=== PATIENT | female | born 1980 | race Caucasian/White ===

== ENCOUNTER 2017-04-14 20:00 | Emergency (ER) | payer MEDICAID ==
[~2017-04-14] VITALS: Ht 157.5 cm; Wt 84.5 kg
[~2017-04-14 20:00] MED LIST: CALC600T5 PO; FER325 PO; IRON1TAB75 PO; PREN-46 PO; PREN1TAB17 PO; PRO20 PO; [UNRECOGNIZED DRUG - CODE] PO
[2017-04-14 20:03] VITALS: Ht 157.5 cm; Wt 84.5 kg
[2017-04-14] MEDS ORDERED: KETOROLAC 60 MG INJ IM STA (22:53)
[2017-04-14] MEDS ORDERED: NAPR-688 PO (23:40)
--- NOTE | 2017-04-14 23:45 | ERD ---
ER Documentation Chief Complaint Date/Time DATE: 04/14/17 TIME: 23:42 Chief Complaint Chest pain noted, exacerbated by deep breathing x1 day HPI 36-year-old female presents with chest pain made worse by deep breathing for 1 day. The pain is across her entire chest and has tenderness to palpation in the left side of the chest. She has no shortness of breath, lightheadedness, nausea or vomiting. She works at home and cares for her children. No cardiac risk factors. ROS All systems reviewed and are negative except as per history of present illness. Medications Home Meds Active Scripts Naproxen* (Naproxen*) 500 Mg Tablet, 500 MG PO BID, #20 TAB Prov:ABILIO TILLEY DO 04/14/17 Reported Medications Calcium Carbonate (CALCIUM) 600 Mg Tablet, 600 MG PO DAILY 08/31/13 Ferrous Sulfate* (Ferrous Sulfate*) 325 Mg Tabec, 325 MG PO DAILY 08/31/13 Vit #108/Iron/Fa ( ONE TABLET) 1 Each Tablet, 1 EACH PO DAILY 08/31/13 Nifedipine* (Procardia*) 20 Mg Cap, 20 MG PO Q6 08/31/13 Iron &Iron Asp Gly/Fa/Mv,Min38 (IRON TABLET) 1 Each Tablet, 1 EACH PO DAILY 06/23/13 Calc/D3/Mag/Zn/[employer]ric [employer]er/[place] (CALCIUM 600 MG + VIT D TAB) 1 Each Tablet, 1 EACH PO DAILY 06/23/13 Vit-Iron Fumarate-FA ( Tablet) 1 Each Tablet, 1 EACH PO DAILY 06/23/13 Allergies Allergies: Coded Allergies: No Known Allergy (Unverified , 08/06/06) PMhx/Soc Medical and Surgical Hx: pt denies Medical Hx, pt denies Surgical Hx Hx Alcohol Use: No Hx Substance Use: No Hx Tobacco Use: No Smoking Status: Never smoker Physical Exam Vitals Vital Signs Date Time Temp Pulse Resp B/P Pulse Ox O2 Delivery O2 Flow Rate FiO2 04/14/17 20:03 99.6 74 18 169/104 98 Physical Exam Const: [] No distress ENT: Normal External Ears, Nose and Mouth. Neck: Full range of motion..~ No meningismus. Resp: Clear to auscultation bilaterally Cardio: Regular rate and rhythm, no murmurs Abd: Soft, non tender, non distended. Normal bowel sounds Skin: No petechiae or rashes Chest wall: Very tender to palpation over left costochondral junction. Ext: No cyanosis, or edema Results 24 hrs Current Medications Medications (Trade) Dose Ordered Sig/[place] Route PRN Reason Start Time Stop Time Status Last Admin Dose Admin Ketorolac Tromethamine (Toradol) 60 mg ONCE STAT IM 04/14/17 22:53 04/14/17 22:54 DC 04/14/17 23:02 Procedures/MDM Patient with no risk factors for acute coronary syndrome with normal EKG and very tender to palpation as well as pain elicited with arm movements. Likely costochondritis. I have very little suspicion for acute coronary syndrome. Patient was given Toradol injection IM 60 mg in the ER which did help with her pain significantly. I am discharging with naproxen for 10 days as well as return precautions and recommendation to get an outpatient echo through her primary care doctor. Providing primary care follow-up in the next 2 3 days. EKG interpretation: Normal sinus rhythm rate of 67, normal axis, no ST or T- wave changes concerning for acute ischemia. Normal intervals per normal EKG Departure Diagnosis: Primary Impression: Costochondritis, acute Condition: Stable Patient Instructions: Chest Wall Pain, Costochondritis Referrals: [facility] YOU HAVE RECEIVED A MEDICAL SCREENING EXAM AND THE RESULTS INDICATE THAT YOU DO NOT HAVE A CONDITION THAT REQUIRES URGENT TREATMENT IN THE EMERGENCY DEPARTMENT. FURTHER EVALUATION AND TREATMENT OF YOUR CONDITION CAN WAIT UNTIL YOU ARE SEEN IN YOUR DOCTORS OFFICE WITHIN THE NEXT 1-2 DAYS. IT IS YOUR RESPONSIBILITY TO MAKE AN APPOINTMENT FOR FOLOW-UP CARE. IF YOU HAVE A PRIMARY DOCTOR --you should call your primary doctor and schedule an appointment IF YOU DO NOT HAVE A PRIMARY DOCTOR YOU CAN CALL OUR PHYSICIAN REFERRAL HOTLINE AT IF YOU CAN NOT AFFORD TO SEE A PHYSICIAN YOU CAN CHOSE FROM THE FOLLOWING [facility] [address] [facility] [address] [facility] [address] [facility] [address] [facility] [address] [place] [address]. [facility]. [address] Additional Instructions: Call your primary care doctor TOMORROW for an appointment during the next 2-3 days. Get an appointment for an outpatient ECHO if pain continues. See the doctor sooner or return here if your condition worsens before your appointment time. ABILIO TILLEY DO Apr 14, 2017 23:45
== END 2017-04-14 23:49 | disposition home or self-care (01) ==
LOC: FTE 20:00
DX: M94.0 Chondrocostal junction syndrome [Tietze] (principal)
CPT/HCPCS: 93005; J1885; Z7502

== ENCOUNTER 2019-05-20 11:00 | Emergency (ER) | payer MEDICAID ==
[~2019-05-20] VITALS: Ht 162.6 cm; Wt 80.4 kg
[~2019-05-20 11:00] MED LIST changes: +CLIN300C10 PO; +HYDR-4011 PO; +NAPR-688 PO; +NPH10OT RIGHT EAR; -PREN-46 PO; +PRENATAL ONE T1 EACH PO
[2019-05-20 11:09] VITALS: BP 155/93; PULSE 80; RESP 18; Ht 162.6 cm; Wt 80.4 kg
[2019-05-20] MEDS ORDERED: morphine 4 MG/ML VIAL IV STA (11:43)
[2019-05-20] MEDS ORDERED: SOD CHLORIDE 0.9% 1,000 ML IV STA (11:43)
[2019-05-20] MEDS ORDERED: CLINDAMYCIN 300 MG/D5W (PMX) 50 ML IVPB SCH (12:00)
== END 2019-05-20 13:06 | disposition home or self-care (01) ==
LOC: FTE 11:00
DX: H60.91 Unspecified otitis externa, right ear (principal)
CPT/HCPCS: 36415; 70480; 80053; 81001; 81025; 83690; 85025; 96365; 96375; J2270; J7030; S0077; Z7502